=== PATIENT | female | born 1980 | race Caucasian/White ===

== ENCOUNTER 2020-09-01 12:02 | Day surgery (SDC) | payer BC ==
[~2020-09-01 12:02] MED LIST: PROPOFOL INJ 200 MG/20 ML VIAL IV ONE
--- NOTE | 2020-09-01 13:36 | Operative Report ---
Operative Report DATE OF SURGERY: 09/01/20 Operative Report: The risk, benefits and alternatives of the procedure including the risk of bleeding, perforation requiring surgery have been explained to the patient in detail and informed consent has been obtained. Patient is taken back to the endoscopy suite placed in a left, lateral decubital position. Timeout was called. Propofol medication is administered. Rectal examination is done which did not reveal any masses, tears or fissures. An Olympus videoscope was i ntroduced into the patient's rectum the scope was then subsequently into the advanced all the way to the cecum cecum was identified by the usual anatomical landmarks including the ileocecal valve as well as the appendiceal office. Prep was good. Scope was then sequentially pulled back via the rest segments of the colon including the ascending colon, hepatic flexure, transverse colon, splenic flexure, descending colon and finally into the rectosigmoid portions of the colon. Retroflexion maneuvers performed. The risks benefits and alternatives of the procedure explained to the patient in detail and informed consent is obtained.A GIF Olympus video scope was inserted into the patient's mouth and hypopharynx ,the esophagus is identified intubated and insufflated ,the scope was then advanced through the esophagus stomach and duodenum ,retroflexion maneuver is done ,the esophagus stomach and first and second portions of the duodenum examined PREOPERATIVE DIAGNOSIS: Family history of colorectal cancer. Dysphagia POSTOPERATIVE DIAGNOSIS: Schatzki's ring status post breakage. Esophagitis versus Sellers's status post biopsy. Gastritis status post biopsy. Cecal polyp noted to be sessile with a mucinous type component which is removed via snare polypectomy and retrieved. Internal hemorrhoids OPERATION: Colonoscopy with snare polypectomy. EGD with biopsy SURGEON: RICARDO KNIGHT ANESTHESIA: LMAC TISSUE REMOVED OR ALTERED: As noted above. COMPLICATIONS: None. ESTIMATED BLOOD LOSS: None. INTRAOPERATIVE FINDINGS: As noted above. PROCEDURE: Patient tolerated the procedure well. No immediate postprocedure complications are noted. Patient is discharged in good condition. Discharge date 09/01/2020. Discharge diet: Regular. Discharge activity: Regular. 2 to 3-week follow-up to discuss findings. Patient is instructed call the office or proceed to the emergency room should there be any further problems or questions. 3-year surveillance colonoscopy.
[2020-09-01 14:01] VITALS: BP 107/71
== END 2020-09-01 14:04 | disposition home or self-care (01) ==
LOC: END 12:02
PROVIDERS: ATTEND Internal Medicine Gastroenterology
DX: Z12.11 Encounter for screening for malignant neoplasm of colon (principal); K31.9 Disease of stomach and duodenum, unspecified; K21.00 Gastro-esophageal reflux disease with esophagitis, without bleeding; D12.0 Benign neoplasm of cecum; K64.8 Other hemorrhoids; K22.2 Esophageal obstruction; K29.70 Gastritis, unspecified, without bleeding; I47.1 Supraventricular tachycardia; Z80.0 Family history of malignant neoplasm of digestive organs; Z87.891 Personal history of nicotine dependence; Z12.12 Encounter for screening for malignant neoplasm of rectum; Z79.899 Other long term (current) drug therapy; Z97.5 Presence of (intrauterine) contraceptive device
CPT/HCPCS: 43239; 45385; 88305 ×2; J2704; 813; 88342